=== PATIENT | female | born 1980 | race Caucasian/White ===

== ENCOUNTER 2018-05-17 14:44 | Emergency (ER) | payer SELFPAY ==
[~2018-05-17] VITALS: Ht 162.6 cm; Wt 61.0 kg
[2018-05-17 15:28] VITALS: BP 99/50
== END 2018-05-17 18:40 | disposition left against medical advice (07) ==
LOC: ER 14:44
DX: R50.9 Fever, unspecified (principal); Z53.21 Procedure and treatment not carried out due to patient leaving prior to being seen by health care provider

== ENCOUNTER 2019-06-07 07:36 | Emergency (ER) | payer BC ==
[~2019-06-07] VITALS: Ht 160 cm; Wt 56.0 kg
[2019-06-07 07:57] VITALS: BP 118/61
[2019-06-07] MEDS ORDERED: KETOROLAC 60MG/2ML VIAL IM ONE (09:30)
== END 2019-06-07 09:37 | disposition home or self-care (01) ==
LOC: ER 08:20
DX: S39.012A Strain of muscle, fascia and tendon of lower back, initial encounter (principal); X50.0XXA Overexertion from strenuous movement or load, initial encounter; Z91.81 History of falling; Y93.89 Activity, other specified; Y92.89 Other specified places as the place of occurrence of the external cause; Y99.8 Other external cause status
CPT/HCPCS: 81025; 96372; 99283; J1885